=== PATIENT | male | born 1955 | race Caucasian/White ===

== ENCOUNTER 2023-01-24 17:12 | Emergency (ER) | payer OTHER, MEDICARE ==
[~2023-01-24] VITALS: Ht 175 cm; Wt 79.3 kg
[~2023-01-24 17:12] MED LIST: AMLO1CAP4 PO; CPR250T PO; GLMP4T PO; HYDR1TAB PO; INSU100C4 SQ; METF-380 PO; METR500T PO; MTF500T PO
--- NOTE | 2023-01-24 18:05 | ED Fall/Injury ---
General Chief Complaint: Trauma-Non Activation Stated Complaint: INJ LEFT HIP Nursing Triage Note: PT PRESENTS TO ED VIA EMS FROM [facility] WITH COMPLAINTS OF L HIP PAIN AFTER FALLING TODAY WHEN TRYING TO GET OUT OF HIS BOAT PT STATES HE LOST HIS BALANCE AND FELL ONTO HIS L SIDE ONTO THE DOCK. PT DENIES ANY OTHER INJURY OR LOC. Source: patient History of Present Illness Date Seen by Provider: Jan 24, 2023 Time Seen by Provider: 17:50 Initial Comments PT ARRIVES VIA EMS PT STATES HE WAS FISHING AND FELL WHILE HE WAS GETTING OUT OF THE BOAT ONTO THE DOCK, AND LANDED ON HIS LEFT HIP AND THEN FELL IN THE WATER. HE WAS WEARING A LIFE JACKET AT THE TIME THIS OCCURRED AROUND 1400 TODAY HE STATES THAT HE COULDN'T CALL ANYONE AT THE TIME DUE TO NO CELL PHONE SERVICE C/O LEFT HIP PAIN AND STATES HE CANNOT BEAR WEIGHT ON HIS LEFT LEG HE DID NOT HIT HEAD AND NO LOSS OF CONSCIOUSNESS NO NECK PAIN NO NEW BACK PAIN NO PARESTHESIAS. 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 LOPEZ WITH [facility], AND HAS CONTINUED TO FOLLOW UP WITH THEM FOR THIS PROBLEM HE STATES HE HAS FALLEN SEVERAL TIMES IN THE LAST FEW MONTHS HE FELL A COUPLE OF MONTHS AGO AND LANDED ON HIS BACK, BUT DID NOT SEEK CARE-- STATES "IT TOOK ME ABOUT 6 WEEKS TO GET OVER THAT" HE FELL AGAIN ABOUT A MONTH AGO--STATES HE FELL OUT OF HIS BOAT AND LANDED ON PAVEMENT. STATES HE "BROKE A FEW RIBS"--HE STATES THAT IS BETTER. HE IS NOT ON ASPIRIN OR BLOOD THINNERS LAST FOOD INTAKE WAS AT [facility]--HAD SOME CRACKERS. PCP: KEITH COSBY ORTHOPEDIC/SPINE SURGEON: DR. LOPEZ / [place] STATES IN [place] Allergies and Home Medications Allergies Coded Allergies: No Known Drug Allergies (Unverified , 02/14/13) Patient Home Medication List Home Medication List Reviewed: Yes Amlodipine Besylate/Benazepril (Lotrel 5-10 Mg Capsule) 1 Cap Capsule, 1 EACH PO DAILY, (Reported) Entered as Reported by: DESHAWN NGUYEN on 02/15/13 0300 Ciprofloxacin Hcl (Cipro) 250 Mg Tablet, 1 TAB PO BID, (Reported) Entered as Reported by: ARTI FRANCO on 02/18/13 1030 Glimepiride (Amaryl) 4 Mg Tab, 4 MG PO DAILY@0630, (Reported) Entered as Reported by: DESHAWN NGUYEN on 02/15/13 0300 Hydrocodone Bit/Acetaminophen (Vicodin 5-500 Tablet) 1 Each Tablet, 1-2 EACH PO Q4HR PRN, (Reported) Entered as Reported by: ARTI FRANCO on 02/18/13 1030 Insulin Glargine,Hum.rec.anlog (Lantus) 300 Units/3 Ml Soln, 10 UNITS SQ HS, (Reported) Entered as Reported by: DESHAWN NGUYEN on 02/15/13 030 Metformin Hcl (Metformin 500 Mg) 500 Mg Tablet, 1 EACH PO Q AM, (Reported) Entered as Reported by: DESHAWN NGUYEN on 02/15/13 030 Metformin Hcl (Metformin 1000 Mg) 1,000 Mg Tablet, 1 EACH PO HS, (Reported) Entered as Reported by: DESHAWN NGUYEN on 02/15/13 030 Metronidazole (Flagyl 500 Mg) 500 Mg Tab, 1 EACH PO TID, (Reported) Entered as Reported by: ARTI FRANCO on 02/18/13 1030 Review of Systems Review of Systems Constitutional: no symptoms reported Eyes: No Symptoms Reported Ears, Nose, Mouth, Throat: no symptoms reported Respiratory: no symptoms reported Cardiovascular: no symptoms reported Gastrointestinal: no symptoms reported Genitourinary: no symptoms reported Musculoskeletal: see HPI Skin: no symptoms reported Psychiatric/Neurological: See HPI, Pre-Existing Deficit Past Sdzllma-Fxxxtk-Uioeey Hx Patient Social History Tobacco Use?: No Smokeless Tobacco Frequency: Never a User Substance use?: No Alcohol Use?: Yes Alcohol Frequency: Once in a while Pt feels they are or have been: No Immunizations Up To Date Tetanus Booster (TDap): Less than 5yrs Past Medical History Surgery/Hospitalization HX: PMH: BACK SX, DM, HTN Surgeries: Yes Orthopedic Respiratory: No Cardiac: Yes Hypertension Neurological: Yes (LEFT LEG WEAKNESS/RADICULOPATHY) Reproductive Disorders: No Sexually Transmitted Disease: No HIV/AIDS: No Genitourinary: No Gastrointestinal: No Musculoskeletal: Yes (CHRONIC BACK PAIN, LEFT SIDED SCIATICA AND LEFT LEG WEAKNESS; ) Arthritis, Chronic Back Pain Endocrine: Yes Diabetes, Insulin dep Cancer: No Psychosocial: No Integumentary: No Blood Disorders: No Adverse Reaction/Blood Tranf: No Physical Exam Vital Signs Vital Signs - First Documented 01/24/23 01/24/23 17:12 21:12 Temp 36.6 Pulse 98 Resp 16 B/P (MAP) 179/105 (129) Pulse Ox 97 O2 Delivery Nasal Cannula O2 Flow Rate 2.00 Capillary Refill : Less Than 3 Seconds Height, Weight, BMI Height: '" Weight: lbs. oz. kg; 25.00 BMI Method: General Appearance: WD/WN, no apparent distress HEENT: PERRL/EOMI Neck: non-tender, normal inspection Cardiovascular: normal peripheral pulses, regular rate, rhythm, no murmur Respiratory: chest non-tender, normal breath sounds Peripheral Pulses: 2+ Dorsalis Pedis (R), 2+ Left Dors-Pedis (L) Gastrointestinal: non tender Back: no CVA tenderness Extremities: normal capillary refill, other (TENDERNESS TO LEFT HIP; LEFT LEG IS SHORTENED AND EXTERNALLY ROTATED. 1+ EDEMA TO LEFT LOWER LEG AND FOOT--NORMAL FOR PT. PULSES 1+ BILATERALLY, WITH INTACT SENSATION AND GOOD CAP REFILL) Neurologic/Psychiatric: child adolescent psychiatrist II-XII nml as tested, alert, normal mood/affect, oriented x 3 Skin: normal color, warm/dry; No ecchymosis [place] Coma Score Best Eye Response: (4) Open Spontaneously Best Verbal Response: (5) Oriented Best Motor Response: (6) Obeys Commands Genia Total: 15 Progress/Results/Core Measures Results/Orders Lab Results Laboratory Tests Test 01/24/23 18:23 01/24/23 18:36 Range/Units Urine Color YELLOW Urine Clarity CLEAR Urine pH 5.5 5-9 Urine Specific [place] 1.025 H 1.016-1.022 Urine Protein 2+ H NEGATIVE Urine Glucose (UA) 3+ H NEGATIVE Urine Ketones 1+ H NEGATIVE Urine Nitrite NEGATIVE NEGATIVE Urine Bilirubin NEGATIVE NEGATIVE Urine Urobilinogen 0.2 < = 1.0 MG/DL Urine Leukocyte Esterase NEGATIVE NEGATIVE Urine RBC (Auto) 1+ H NEGATIVE Urine RBC 0-2 /HPF Urine WBC 0-2 /HPF Urine Crystals NONE /LPF Urine Bacteria TRACE /HPF Urine Casts NONE /LPF Urine Mucus NEGATIVE /LPF Urine Culture Indicated NO White Blood Count 13.9 H 4.3-11.0 10^3/uL Red Blood Count 5.11 4.30-5.52 10^6/uL Hemoglobin 15.3 13.3-17.7 g/dL Hematocrit 44 40-54 % Mean Corpuscular Volume 86 80-99 fL Mean Corpuscular Hemoglobin 30 25-34 pg Mean Corpuscular Hemoglobin Concent 35 32-36 g/dL Red Cell Distribution Width 12.5 10.0-14.5 % Platelet Count 260 130-400 10^3/uL Mean Platelet Volume 9.1 9.0-12.2 fL Immature Granulocyte % (Auto) 1 % Neutrophils (%) (Auto) 88 H 42-75 % Lymphocytes (%) (Auto) 6 L 12-44 % Monocytes (%) (Auto) 6 0-12 % Eosinophils (%) (Auto) 0 0-10 % Basophils (%) (Auto) 0 0-10 % Neutrophils # (Auto) 12.3 H 1.8-7.8 10^3/uL Lymphocytes # (Auto) 0.8 L 1.0-4.0 10^3/uL Monocytes # (Auto) 0.8 0.0-1.0 10^3/uL Eosinophils # (Auto) 0.0 0.0-0.3 10^3/uL Basophils # (Auto) 0.0 0.0-0.1 10^3/uL Immature Granulocyte # (Auto) 0.1 0.0-0.1 10^3/uL Neutrophils % (Manual) 82 % Lymphocytes % (Manual) 11 % Monocytes % (Manual) 5 % Eosinophils % (Manual) 1 % Basophils % (Manual) 0 % Band Neutrophils 1 % Blood Morphology Comment NORMAL Prothrombin Time 13.8 12.2-14.7 SEC INR Comment 1.0 0.8-1.4 Activated Partial Thromboplast Time 28 24-35 SEC Sodium Level 141 135-145 MMOL/L Potassium Level 3.8 3.6-5.0 MMOL/L Chloride Level 108 H 98-107 MMOL/L Carbon Dioxide Level 22 21-32 MMOL/L Anion Gap 11 5-14 MMOL/L Blood Urea Nitrogen 30 H 7-18 MG/DL Creatinine 0.95 0.60-1.30 MG/DL Estimat Glomerular Filtration Rate 87 BUN/Creatinine Ratio 32 Glucose Level 244 H 70-105 MG/DL Calcium Level 9.4 8.5-10.1 MG/DL Corrected Calcium 9.2 8.5-10.1 MG/DL Total Bilirubin 0.7 0.1-1.0 MG/DL Aspartate Amino Transf (AST/SGOT) 16 5-34 U/L Alanine Aminotransferase (ALT/SGPT) 22 0-55 U/L Alkaline Phosphatase 79 40-136 U/L Total Protein 6.5 6.4-8.2 GM/DL Albumin 4.2 3.2-4.5 GM/DL My Orders Orders - JUSTYN GRIDER DO Ed Iv/Invasive Line Start (01/24/23 17:58) Monitor-Rhythm Ecg Trace Only (01/24/23 17:58) Pelvis With Left Hip 2-3 Views (01/24/23 17:58) Ua Culture If Indicated (01/24/23 17:58) Cbc With Automated Diff (01/24/23 18:17) Comprehensive Metabolic Panel (01/24/23 18:17) Protime With Inr (01/24/23 18:17) Partial Thromboplastin Time (01/24/23 18:17) Chest 1 View, Ap/Pa Only (01/24/23 18:17) Ed Iv/Invasive Line Start (01/24/23 18:17) Ns Iv 1000 Ml (Sodium Chloride 0.9%) (01/24/23 18:30) Fentanyl Inj (Sublimaze Injection) (01/24/23 18:17) Manual Differential (01/24/23 18:36) Catheter(Urinary) Insert & Ass 03,15 (01/24/23 19:05) Lidocaine 2% (Urojet) (Xylocaine Urojet) (01/24/23 19:15) Ed Iv/Invasive Line Start (01/24/23 19:11) Ns Iv 1000 Ml (Sodium Chloride 0.9%) (01/24/23 19:15) Fentanyl Inj (Sublimaze Injection) (01/24/23 19:11) Morphine Injection (Morphine Injection (01/24/23 20:09) Morphine Injection (Morphine Injection (01/24/23 21:03) Morphine Injection (Morphine Injection (01/24/23 21:05) Vital Signs/I&O 01/24/23 01/24/23 01/24/23 17:12 18:39 21:12 Temp 36.6 36.6 36.6 Pulse 98 98 90 Resp 16 16 95 B/P (MAP) 179/105 (129) 179/105 (129) 155/80 Pulse Ox 97 97 97 O2 Delivery Nasal Cannula O2 Flow Rate 2.00 01/25/23 00:00 Intake Total 2000 ml Balance 2000 ml Blood Pressure Mean: 129 Progress Progress Note : Progress Note GIVEN: -IV FLUIDS -FENTANYL--FEELS MUCH BETTER BASIC LABS INCLUDING CBC, CMP, UA ORDERED, IN ADDITION TO XRAYS PERTINENT LAB FINDINGS: WBC 13.9 BUN 30 / CR 0.95, GLUCOSE 244 UA 2+ PROTEIN,3+ GLUCOSE, 1= KETONES VITALS STABLE, NO DETERIORATION IN PT'S CONDITION DURING ER STAY XRAYS SHOW LEFT HIP FRACTURE DISCUSSED TEST RESULTS, NEED FOR TRANSFER-- THERE IS NO ORTHOPEDIC SURGERY SERVICES AVAILABLE HERE AT THIS TIME, AND PT IS AGREEABLE TO PLAN NO PRIOR VISITS HERE Diagnostic Imaging Comments XRAYS PELVIS AND LEFT HIP--PER RADIOLOGIST REPORT AT 1830 FINDINGS: There is an impacted foreshortened left femoral neck fracture. Coxa vera alignment is present with significant impaction at the femoral neck. Remainder of the pelvis otherwise intact. Right hip joint with mild/moderate narrowing. Partial visualization of lower lumbar spinal hardware. Mild vascular calcification. IMPRESSION: Impacted, foreshortened and mildly angulated left femoral neck fracture. Reviewed: Reviewed by Me Departure Communication (Admissions) 1829--CALLED [facility] TRANSFER LINE 1839--SPOKE WITH DR. WINKLER, ORTHOPEDIC SURGEON, SHE WILL SEE PT IN CONSULT, ADVISES TO ADMIT TO HOSPITALIST 1857--INFORMED THAT [facility] WILL BE ABLE TO TRANSPORT PT AFTER 8 PM TONIGHT. 1905--SPOKE WITH DR. LUX, HOSPITALIST, ACCEPTS PT FOR ADMIT. 2057--EMS HERE FOR TRANSPORT Impression Primary Impression: Closed left hip fracture Additional Impressions: FALL FROM A BOAT IDDM (insulin dependent diabetes mellitus) CHRONIC LEFT LEG WEAKNESS AND RADICULOPATHY Chronic back pain Disposition: 02 XFER SHT-TRM HOSP Condition: Stable Transfer Transfer Reason: Exceeds level of care (NO ORTHOPEDIC SURGERY SERVICES AVAILABLE HERE AT THIS TIME.) Departure-Patient Inst. Referrals: JELENA CUEVA DO (PCP/Family) Primary Care Physician JUSTYN GRIDER DO Jan 24, 2023 18:05
[2023-01-24] MEDS ORDERED: fentaNYL INJ 100 MCG/2 ML AMP IVP STA ×2 (18:17→19:11)
--- NOTE | 2023-01-24 18:21 | Diagnostic Imaging Report ---
INDICATION: Left hip pain post fall. TECHNIQUE: AP pelvis along with 2 views left hip, 6:07 PM. CORRELATION STUDY: None. FINDINGS: There is an impacted foreshortened left femoral neck fracture. Coxa vera alignment is present with significant impaction at the femoral neck. Remainder of the pelvis otherwise intact. Right hip joint with mild/moderate narrowing. Partial visualization of lower lumbar spinal hardware. Mild vascular calcification. IMPRESSION: Impacted, foreshortened and mildly angulated left femoral neck fracture. Dictated by: Dictated on workstation # [id number]
[2023-01-24 18:30] LABS: BILIRUBIN,URINE NEGATIVE (NEGATIVE); CLARITY,URINE CLEAR; COLOR,URINE YELLOW; GLUCOSE, URINE (UA) 3+ (NEGATIVE); KETONES,URINE 1+ (NEGATIVE); LEUKOCYTE ESTERASE ,URINE NEGATIVE (NEGATIVE); NITRITE,URINE NEGATIVE (NEGATIVE); PH,URINE 5.5 (5-9); PROTEIN,URINE 2+ (NEGATIVE)
[2023-01-24] MEDS ORDERED: NS IV 1000 ML 1,000 ML IV SCH ×2 (18:30→19:15)
[2023-01-24 18:39] LABS: BACTERIA,URINE TRACE /HPF; RBC,URINE 0-2 /HPF; WBC,URINE 0-2 /HPF
[2023-01-24 18:40] LABS: BASOPHILS % (AUTO) 0 % (0-10); EOSINOPHILS % (AUTO) 0 % (0-10); HEMATOCRIT 44 % (40-54); HEMOGLOBIN 15.3 g/dL (13.3-17.7); LYMPHOCYTES # (AUTO) 0.8 10^3/uL (1.0-4.0); LYMPHOCYTES % (AUTO) 6 % (12-44); MEAN CORPUSCULAR HEMOGLOBIN 30 pg (25-34); MEAN CORPUSCULAR HGB CONC 35 g/dL (32-36); MEAN CORPUSCULAR VOLUME 86 fL (80-99); MEAN PLATELET VOLUME 9.1 fL (9.0-12.2); MONOCYTES # (AUTO) 0.8 10^3/uL (0.0-1.0); MONOCYTES % (AUTO) 6 % (0-12); NEUTROPHILS # (AUTO) 12.3 10^3/uL (1.8-7.8); NEUTROPHILS % (AUTO) 88 % (42-75); PLATELET COUNT 260 10^3/uL (130-400); WHITE BLOOD COUNT 13.9 10^3/uL (4.3-11.0)
[2023-01-24 18:51] LABS: ALBUMIN 4.2 GM/DL (3.2-4.5); POTASSIUM 3.8 MMOL/L (3.6-5.0); PROTHROMBIN TIME PATIENT 13.8 SEC (12.2-14.7)
[2023-01-24 18:52] LABS: CALCIUM 9.4 MG/DL (8.5-10.1)
[2023-01-24 18:53] LABS: TOTAL PROTEIN 6.5 GM/DL (6.4-8.2)
[2023-01-24 18:55] LABS: BILIRUBIN,TOTAL 0.7 MG/DL (0.1-1.0)
[2023-01-24 18:57] LABS: CREATININE SERUM 0.95 MG/DL (0.60-1.30)
[2023-01-24 19:14] LABS: BAND NEUTROPHILS 1 %; BASOPHILS % (MANUAL) 0 %; EOSINOPHILS % (MANUAL) 1 %; LYMPHOCYTES % (MANUAL) 11 %; MONOCYTES % (MANUAL) 5 %; NEUTROPHILS % (MANUAL) 82 %; RBC MORPH NORMAL
[2023-01-24] MEDS ORDERED: LIDOCAINE UROJET 2% GEL 10 ML PKG TOP ONE (19:15)
--- NOTE | 2023-01-24 19:17 | Diagnostic Imaging Report ---
INDICATION: Fall with left hip fracture. TECHNIQUE: Single view chest 6:59 PM. CORRELATION STUDY: None. FINDINGS: Heart size enlarged. Mediastinum prominent. Vasculature within normal limits. Left diaphragm is largely obscured. Visualized lung lebron, however, appear clear and unremarkable. IMPRESSION: Cardiac enlargement without failure. Dictated by: Dictated on workstation # [id number]
[2023-01-24] MEDS ORDERED: morphine INJ 10 MG/ML 1ML (SYR OR VIAL) IVP STA ×2 (20:09→21:03)
[2023-01-24] MEDS ORDERED: morphine INJ 4 MG/ML 1 ML (VIAL/SYRINGE) ONE (21:05)
[2023-01-24 21:12] VITALS: BP 155/80
== END 2023-01-24 21:12 | disposition short-term general hospital (02) ==
LOC: EDUNIT# 17:12 → ER 17:14
DX: S72.002A Fracture of unspecified part of neck of left femur, initial encounter for closed fracture (principal); G89.29 Other chronic pain; M54.32 Sciatica, left side; M54.10 Radiculopathy, site unspecified; R53.1 Weakness; E11.9 Type 2 diabetes mellitus without complications; Z79.4 Long term (current) use of insulin; Z98.890 Other specified postprocedural states; V92.09XA Drowning and submersion due to fall off unspecified watercraft, initial encounter
CPT/HCPCS: 36415; 51702; 71045; 80053; 81000; 85007; 85027; 85610; 85730; 93041